=== PATIENT | male | born 1985 | race Caucasian/White ===

== ENCOUNTER 2017-11-28 21:38 | Emergency (ER) | payer SELFPAY ==
[2017-11-28] MEDS ORDERED: IPRATROPIUM/ALBUTEROL SULFATE 3 ML AMPUL.NEB NEB STA (22:09)
[2017-11-28] MEDS ORDERED: IPRATROPIUM/ALBUTEROL SULFATE 3 ML AMPUL.NEB NEB ONE (22:10)
[2017-11-28 22:30] VITALS: BP 130/58
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
== END 2017-11-28 22:28 | disposition home or self-care (01) ==
LOC: ED 21:38
DX: J02.8 Acute pharyngitis due to other specified organisms (principal)
CPT/HCPCS: 94640; 99283

== ENCOUNTER 2018-01-25 11:19 | Emergency (ER) | payer SELFPAY ==
[2018-01-25 11:42] VITALS: BP 127/70
--- NOTE | 2018-01-25 12:00 | ED Physician Documentation ---
Lower Extremity Injury - HPI Stated Complaint: Swelling, increased pain to Rt foot, 5th digit Chief Complaint: Lower Extremity Problem Additional Information: cellulitis rt 5th toe ext toward mid foot and lesser to 4th toe-steped on nail aopprox 1 mo ago no tx Where: home Severity: mild, moderate Context: wearing shoes Associated Symptoms:: swelling (min). denies: numbness distally Modifying Factors:: pain on movement - ROS CONST: no problems CVS/RESP: none GI/: denies: problems urinating, nausea, vomiting MS/SKIN/LYMPH: none NEURO: denies: headache, anxiety, depression - PAST HX Past History: none Immunizations: denies: UTD Allergies/Adverse Reactions: Allergies Allergy/AdvReac Type Severity Reaction Status Date / Time No Known Allergies Allergy Verified 01/25/18 11:42 Home Medications: Ambulatory Orders Medication Instructions Recorded Cephalexin [Keflex] 500 mg PO QID #40 capsule 01/25/18 - SOCIAL HX Smoking History: less than 1 pack/day Alcohol Use: none Drug Use: none - FAMILY HX Family History: no significant history - VITAL SIGNS Vital Signs: Vital Signs Temp Pulse Resp BP Pulse Ox 98.6 F 91 H 16 127/70 96 01/25/18 11:22 01/25/18 11:22 01/25/18 11:22 01/25/18 11:22 01/25/18 11:22 - REVIEWED ASSESSMENTS Nursing Assessment Reviewed: Yes Vitals Reviewed: Yes Lower Extremities Injury Phy - Physical Exam General Appearance: mild distress Gait: limited by pain Neuro/Vascular/Tendon: no vascular compromise, motor nml, sensation nml, abnml color, other (sl [id number] swelling tenderness toes 5 and 4 w/ surrounding erythemna and tenderness). No: abnml warmth, abnml cap refill, pulse deficit Neck/Back: tenderness Resp/CVS: chest non-tender, breath sounds nml, heart sounds nml, no resp. distress, lungs clear, reg. rate & rhythm Abdomen: non-tender Discharge Clincal Impression: 4th toe and foot Prescriptions: Cephalexin [Keflex] 500 mg PO QID #40 capsule Referrals: Primary Doctor,No [Primary Care Provider] - 2 Days Comments: soak foot hot water keflex as dir f/u prn tet tox Condition: Good Disposition: 01 HOME, SELF-CARE Decision to Admit: NO Decision Time: 12:08
[2018-01-25] MEDS: DIPH,PERTUSS(ACELL),TET VAC/PF 0.5 ML DISP.SYRIN IM ONE (12:25)
== END 2018-01-25 12:45 | disposition home or self-care (01) ==
LOC: ED 11:19
DX: L03.90 Cellulitis, unspecified (principal)
CPT/HCPCS: 90471; 90715; 99282

== ENCOUNTER 2018-03-11 19:18 | Emergency (ER) | payer SELFPAY ==
--- NOTE | 2018-03-11 19:30 | ED Physician Documentation ---
General Adult - HISTORIAN Historian: patient - HPI Stated Complaint: laceration on left forearm Chief Complaint: Laceration/Recheck/Suture Onset: hours (1) Timing: still present Severity: mild Further Comments: yes (he was cutting metal and cut his arm. He had a tetanus shot last year after stepping on a nail) - ROS CONST: no problems - PAST HX Past History: none Immunizations: UTD Allergies/Adverse Reactions: Allergies Allergy/AdvReac Type Severity Reaction Status Date / Time No Known Allergies Allergy Verified 01/25/18 11:42 Home Medications: Ambulatory Orders Medication Instructions Recorded NK 01/25/18 - SOCIAL HX Smoking History: non-smoker Alcohol Use: none Drug Use: none - FAMILY HX Family History: No - VITAL SIGNS Vital Signs: Vital Signs Temp Pulse Resp BP Pulse Ox 98.5 F 70 16 118/65 99 03/11/18 19:45 03/11/18 19:45 03/11/18 19:45 03/11/18 19:45 03/11/18 19:45 - REVIEWED ASSESSMENTS Nursing Assessment Reviewed: Yes Vitals Reviewed: Yes Procedures Wound Location: upper extremity (left forearm ) Anesthesia: 2% Lidocaine Wound Repaired With: sutures Suture Size/Type: 4:0 (8 sutures and 3 steri at lateral end of the laceration ) ED Results Lab/Radiology - Orders Orders: ED Orders Category Date Time Status Cleanse with NS and Chlorhexid 1T Care 03/11/18 20:00 Active Occlusive Dressing [Apply occlusive dressing] NOW Care 03/11/18 20:00 Active LIDOCAINE 2% PF 5ml Disp Syrin [Xylocaine] Med 03/11/18 20:00 Discontinued 100 mg IVP NOW ONE Neomycin/Bacitracin/Polymyxinb [Triple Antibiotic Med 03/11/18 20:00 Discontinued Ointment] 1 each TP NOW ONE General Adult Physical Exam - PHYSICAL EXAM GENERAL APPEARANCE: no distress EENT: eye inspection normal NECK: normal inspection RESPIRATORY: no resp distress, chest non-tender, breath sounds normal CVS: reg rate & rhythm, heart sounds normal, equal pulses ABDOMEN: soft, normal bowel sounds, no distension BACK: normal inspection SKIN: warm/dry, other (8 cm laceration on left forearm ) NEURO: oriented X3 Discharge Clincal Impression: Laceration Referrals: Primary Doctor,No [Primary Care Provider] - 2 Days Additional Instructions: 1. Keep area clean and dry 2. Monitor for symptoms of infection - redness, drainage, pain or swelling - 3. See PCP for suture removal in 10 days 8 sutures 4. return to ER for any concerns Condition: Stable Disposition: 01 HOME, SELF-CARE Decision to Admit: NO Date of Decison to Admit: 03/11/18 Decision Time: 19:59
[2018-03-11] MEDS ORDERED: LIDOCAINE 2% PF 5ml Disp Syrin IVP ONE (20:00)
[2018-03-11] MEDS ORDERED: NEOMYCIN/BACITRACIN/POLYMYXINB 1 EACH OINT.PACK TP ONE (20:00)
[2018-03-11 20:24] VITALS: BP 119/77
== END 2018-03-11 20:20 | disposition home or self-care (01) ==
LOC: ED 19:18
DX: S51.812A Laceration without foreign body of left forearm, initial encounter (principal); W26.8XXA Contact with other sharp object(s), not elsewhere classified, initial encounter; Y92.9 Unspecified place or not applicable; Y93.9 Activity, unspecified; Y99.9 Unspecified external cause status
CPT/HCPCS: 12004; 96374; 99283; J2001

== ENCOUNTER 2019-01-05 21:16 | Emergency (ER) | payer SELFPAY ==
--- NOTE | 2019-01-05 21:25 | ED Physician Documentation ---
General Adult - HISTORIAN Historian: patient - HPI Stated Complaint: laceration on lip from saw Chief Complaint: Laceration/Recheck/Suture Onset: hours (8) Timing: still present Severity: mild Further Comments: yes (he states he was using a saw and something from the saw kicked up and hit him in the face and cut his face. He intially put a bandaid on the face although he felt he had drainage coming out so he wanted to be checked. He has no other injury or compalints.) Last known Well Code/Unknown Code: Unknown - ROS CONST: no problems EYES/ENT: none CVS/RESP: none GI/: none MS/SKIN/LYMPH: other (laceration that is through the lip approx 2 cm with saliva from the open area ) NEURO/PSYCH: denies: headache - PAST HX Past History: other (anxeity ) Surgeries/Procedures: other (ortho surgeries ) Allergies/Adverse Reactions: Allergies Allergy/AdvReac Type Severity Reaction Status Date / Time No Known Allergies Allergy Verified 01/05/19 21:47 Home Medications: Ambulatory Orders Medication Instructions Recorded NK 01/25/18 - SOCIAL HX Smoking History: cigarettes Alcohol Use: occasionally Drug Use: marijuana - FAMILY HX Family History: No - VITAL SIGNS Vital Signs: Vital Signs Temp Pulse Resp BP Pulse Ox 98.4 F 89 16 143/78 97 01/05/19 21:16 01/05/19 23:20 01/05/19 23:20 01/05/19 23:20 01/05/19 23:20 - REVIEWED ASSESSMENTS Nursing Assessment Reviewed: Yes Vitals Reviewed: Yes Procedures Wound Location: mouth Wound's Depth, Shape: other (through ) Wound Explored: no foreign body removed Anesthesia: 1% Lidocaine Wound Debrided: moderate Wound Repaired With: sutures Suture Size/Type: 6:0 (3 on outer lip - 3 inside with dissolvable suture ) Progress - Progress Progress: 2199: did discuss case with Dr Josh Phillips [facility] and he is suggesting the pt have sutures with loose closer - antibiotics and pain meds He will follow up with their clinic DG ED Results Lab/Radiology - Orders Orders: ED Orders Category Date Time Status Clindamycin HCl [Cleocin] Med 01/05/19 23:11 Discontinued 300 mg PO NOW ONE Ketorolac Tromethamine [Toradol] Med 01/05/19 21:59 Discontinued 60 mg IM NOW ONE Lidocaine 1% 5ml [Xylocaine] Med 01/05/19 21:59 Discontinued 50 mg IJ NOW ONE General Adult Physical Exam - PHYSICAL EXAM GENERAL APPEARANCE: no distress EENT: eye inspection normal, no signs of dehydration NECK: normal inspection RESPIRATORY: no resp distress, chest non-tender, breath sounds normal CVS: reg rate & rhythm ABDOMEN: soft, no distension BACK: normal inspection SKIN: warm/dry, other (2 cm laceration on lower lip that is through the lip with open area - no cross of vermilion boarder ) EXTREMITIES: non-tender, normal range of motion NEURO: oriented X3, CN's nml as tested Discharge Clincal Impression: Laceration Referrals: Primary Doctor,No [Primary Care Provider] - 2 Days Comments: 1. Peridox 15 ml swish for 30 seconds and spit 2. Clindamycin 300 mg take 1 by mouth four times per day x 10 days 3. Tramadol 50 mg take 1 by mouth every 8 hours as needed for pain 4. Rinse after eating 5. He did refuse follow up with plastics - he is aware of need to follow up 6. Return to ER for any increasing concerns Condition: Stable Disposition: 01 HOME, SELF-CARE Decision to Admit: NO Date of Decison to Admit: 01/05/19 Decision Time: 23:11
[2019-01-05] MEDS ORDERED: KETOROLAC TROMETHAMINE 60 MG/2 ML VIAL IM ONE (21:59)
[2019-01-05] MEDS ORDERED: Lidocaine 1% 5ml 10 MG/ML VIAL IJ ONE (21:59)
[2019-01-05] MEDS ORDERED: CLINDAMYCIN HCL 150 MG CAPSULE PO ONE (23:11)
[2019-01-05 23:22] VITALS: BP 143/78
== END 2019-01-05 23:17 | disposition home or self-care (01) ==
LOC: ED 21:16
DX: S01.511A Laceration without foreign body of lip, initial encounter (principal); W45.8XXA Other foreign body or object entering through skin, initial encounter; Y93.89 Activity, other specified; Y99.8 Other external cause status
CPT/HCPCS: 12011; 96372; 99284; J1885; A9270

== ENCOUNTER 2019-06-16 18:18 | Emergency (ER) | payer SELFPAY ==
--- NOTE | 2019-06-16 18:32 | ED Physician Documentation ---
Upper Extremity Injury - HISTORIAN Historian: patient - HPI Stated Complaint: right hand injury Chief Complaint: Upper Extremity Injury Additional Information: Patient presents to ED with right hand pain after injuring it while working on a car. Patient states his car fell off a jovan and he reactively tried to catch it injuring his right hand. He report pain in the palm and thumb area. No bruising or abrasions noted. Onset: just prior to arrival Where: home Severity: mild Duration: persistent since Associated Symptoms: denies: tingling, numbness distally Modifying Factors: pain on movement - ROS CONST: no problems CVS/RESP: none NEURO: none MS/SKIN/LYMPH: none GI/: denies: nausea, vomiting - PAST HX Past History: Rt handed Allergies/Adverse Reactions: Allergies Allergy/AdvReac Type Severity Reaction Status Date / Time No Known Allergies Allergy Verified 06/16/19 18:30 Home Medications: Ambulatory Orders Medication Instructions Recorded NK 01/25/18 - SOCIAL HX Smoking History: non-smoker Alcohol Use: none Drug Use: none - FAMILY HX Family History: none - VITAL SIGNS Vital Signs: Vital Signs Temp Pulse Resp BP Pulse Ox 98.0 F 110 H 20 127/84 97 06/16/19 18:26 06/16/19 18:26 06/16/19 18:26 06/16/19 18:26 06/16/19 18:26 - REVIEWED ASSESSMENTS Nursing Assessment Reviewed: Yes Vitals Reviewed: Yes ED Results Lab/Radiology - Radiology Radiology Impressions: Report Submission Date: Jun 16, 2019 7:09:49 PM GERONTOLOGICAL NURSE PRACTITIONER Patient Study Name: DOUG WARD Date: Jun 16, 2019 6:17:32 PM GERONTOLOGICAL NURSE PRACTITIONER Modality Type: DX Gender: M Description: HAND 3 VIEWS OR MORE : 81 Institution: [facility] Physician: APOLINAR LINTON Examination: Plain film right hand History: PT STATES PAIN AT THE BASE OF THE THUMB AFTER INJURY TODAY Comparison exams: None available Findings: 3 views of the right hand demonstrate normal cortical margins. No fracture. No dislocation. No soft tissue abnormality. Impression: No acute osseous abnormality Electronically signed on Jun 16, 2019 7:09:49 PM GERONTOLOGICAL NURSE PRACTITIONER by: Shawn Baker - Orders Orders: ED Orders Category Date Time Status HAND 3 VIEWS OR MORE [RAD] Stat Exams 06/16/19 Taken Upper Extremity Injury Physic - Physical Exam General Appearance: no acute distress, alert Hand: normal inspection, no evidence of injury, limited ROM, soft tissue tenderness. No: ecchymosis Wrist: normal inspection, non-tender, no evidence of injury Elbow/Forearm: normal inspection Shoulder: normal inspection Neuro/Vascular/Tendon: no vascular compromise, motor nml, sensation nml Skin: warm,dry Head/ENT: nml inspection Neck/Back: nml inspection Resp/CVS: chest non-tender, breath sounds nml, heart sounds nml Abdomen: non-tender, pelvis stable Discharge Clincal Impression: Contusion of right hand, initial encounter Referrals: Primary Doctor,No [Primary Care Provider] - 2 Days Additional Instructions: 1. Ibuprofen 600mg every 6 hours and/or Tylenol 650mg every 4 hours as needed for pain. You may take this medications together at the same time for better pain control 2. Tramadol every 8 hours as needed for break through pain 3. Apply ice to affected area as needed for comfort 4. Keep hand elevated while at rest to help reduce swelling 5. Follow up with PCP within 1 week 6. Return to ER for new or worsening symptoms Condition: Stable Disposition: 01 HOME, SELF-CARE Decision to Admit: NO Date of Decison to Admit: 06/16/19 Decision Time: 18:41
--- NOTE | 2019-06-16 19:14 | Diagnostic Imaging Report ---
PATIENT MR#: [id number] PATIENT PATIENT NAME: DOUG WARD DATE OF : 1985 REFERRING PHYSICIAN: Vickie Jean EXAM DATE: 06/16/2019 ACCESSION NUMBER: [id number] EXAM DESCRIPTION: HAND 3 VIEWS OR MORE Examination: Plain film right hand History: PT STATES PAIN AT THE BASE OF THE THUMB AFTER INJURY TODAY Comparison exams: None available Findings: 3 views of the right hand demonstrate normal cortical margins. No fracture. No dislocation . No soft tissue abnormality. Impression: No acute osseous abnormality Read by: Dr. Shawn Baker Transcribed by: Transcribed Date: Electronically signed by: Dr. Shawn Baker Date signed: 06/16/2019 7:14:09 PM
[2019-06-16 19:29] VITALS: BP 140/68
== END 2019-06-16 19:15 | disposition home or self-care (01) ==
LOC: ED 18:18
DX: S60.221A Contusion of right hand, initial encounter (principal); W22.8XXA Striking against or struck by other objects, initial encounter
CPT/HCPCS: 73130; 99283; 99284